=== PATIENT | female | born 1955 | race Caucasian/White ===

== ENCOUNTER 2022-04-05 17:36 | Emergency (ER) | payer BC, OTHER ==
[~2022-04-05] VITALS: Ht 160 cm; Wt 59.0 kg
[2022-04-05] MEDS ORDERED: Morphine 4mg INJECTION 4 MG/ML INJ IV STA (18:09)
[2022-04-05] MEDS ORDERED: LEVETIRACETAM 500 MG TAB PO ONE (18:15)
[2022-04-05 18:17] LABS: BASOPHILS % 0.3 % (0.0-1.0); EOSINOPHILS % 0.1 % (0.0-6.0); HEMATOCRIT 40.7 % (34.2-44.1); HEMOGLOBIN 12.9 g/dL (12.0-16.0); LYMPHOCYTES # (AUTO) 0.9 (1.0-3.2); LYMPHOCYTES % 13.3 % (18.0-39.1); MEAN CORPUSCULAR HEMOGLOBIN 28.9 pg (28-32); MEAN CORPUSCULAR HGB CONC 31.7 g/dL (31-35); MEAN CORPUSCULAR VOLUME 91.1 fL (81-99); MONOCYTES # (AUTO) 0.3 (0.2-0.8); MONOCYTES % 3.9 % (4.4-11.3); NEUTROPHILS # (AUTO) 5.7 (2.1-6.9); PLATELET COUNT 290 x10e3/uL (140-360); RED BLOOD COUNT 4.47 x10e6/uL (3.6-5.1)
[2022-04-05 18:32] LABS: ALBUMIN 3.5 g/dL (3.5-5.0); ALBUMIN/GLOBULIN RATIO 1.5 (0.8-2.0); ANION GAP 17.3 mmol/L (8-16); CREATININE, SERUM 0.79 mg/dL (0.57-1.11); POTASSIUM 3.3 mmol/L (3.5-5.1)
[2022-04-05 18:38] LABS: CREATINE KINASE MB 6.4 ng/mL (0-5.0)
[2022-04-05] MEDS ORDERED: Morphine 2mg Syringe 2 MG/ML SYR IV ONE (20:00)
[2022-04-05 20:15] VITALS: BP 126/83
== END 2022-04-05 20:15 | disposition home or self-care (01) ==
LOC: ER 18:57
DX: S01.512A Laceration without foreign body of oral cavity, initial encounter (principal); G40.909 Epilepsy, unspecified, not intractable, without status epilepticus; W01.0XXA Fall on same level from slipping, tripping and stumbling without subsequent striking against object, initial encounter; Y92.89 Other specified places as the place of occurrence of the external cause; I10 Essential (primary) hypertension; I25.2 Old myocardial infarction; Z95.5 Presence of coronary angioplasty implant and graft; Z85.07 Personal history of malignant neoplasm of pancreas
CPT/HCPCS: 36415; 70450; 71045; 80053; 82550; 82553; 84484; 85025; 93005; 99283; J2270 ×2